=== PATIENT | male | born 1940 | race Caucasian/White ===

== ENCOUNTER 2016-10-29 18:18 | Emergency (ER) | payer MEDICARE, MEDICAID ==
[2016-10-29] MEDS ORDERED: ONDANSETRON INJ 4 MG/2 ML VIAL IV ONE (18:54)
[2016-10-29] MEDS ORDERED: SODIUM CHLORIDE 0.9% (FLUSH) 10 ML SYG IV PRN (18:54)
[2016-10-29] MEDS ORDERED: NITROGLYCERIN 0.4 MG 25 EA TAB SL ONE (18:54)
[2016-10-29] MEDS ORDERED: ASPIRIN TABLET 325 MG TAB PO ONE (18:54)
--- NOTE | 2016-10-29 19:27 | RAD ---
EXAM DESCRIPTION: X-RAY CHEST- One View CLINICAL HISTORY: Chest pain. COMPARISON: 10/28/2013 TECHNIQUE: Single view of the chest. FINDINGS: There are no discrete air space infiltrates, pneumothoraces or pleural effusions. There is presence of a new 8 mm well-circumscribed nodular density in the right lower lung zone, which can be further assessed with a CT of the chest The pulmonary vascularity is normal. The cardiomediastinal silhouette is unremarkable. IMPRESSION: There is presence of a new 8 mm well-circumscribed nodular density in the right lower lung zone, which can be further assessed with a CT of the chest Electronically signed by: Conor Vieyra MD 10/29/2016 19:25
--- NOTE | 2016-10-29 19:41 | CT ---
EXAM DESCRIPTION: CT HEAD WITHOUT INTRAVENOUS CONTRAST CLINICAL HISTORY: Suspected seizure activity. COMPARISON: None. TECHNIQUE: CT of the head was performed without intravenous contrast. FINDINGS: There is no intra or extra-axial hemorrhage,fluid collection, midline shift, mass effect or acute focal infarct. There is prominence of the sylvian fissures and the cortical sulci reflecting age related volume loss. There is periventricular and deep white matter low attenuation, most likely related to small vessel white matter ischemic disease. Acute on chronic ischemic changes are better assessed on an MRI, if such a suspicion exists clinically. The ventricular system is normal for patient's age, position and configuration. Benign intracranial vascular calcifications are seen. Visualized mastoid air cells are unremarkable. The paranasal sinuses are unremarkable. There is no visualization of calvarial or skull base fractures. IMPRESSION: There are no acute intracranial findings. Chronic and age related involutional changes are seen. Electronically signed by: Conor Vieyra MD 10/29/2016 19:39
[2016-10-29] MEDS ORDERED: amLODIPine BESYLATE 5 MG TAB PO ONE (20:37)
[2016-10-29] MEDS ORDERED: ALPRAZolam 0.25 MG TAB PO ONE (20:38)
--- NOTE | 2016-10-29 22:11 | ED.PDOC ---
History of Present Illness - General Chief Complaint: Neuro Symptoms/Deficits Stated Complaint: unresponsive Time Seen by Provider: 10/29/16 18:54 Source: patient, family Exam Limitations: no limitations - History of Present Illness Initial Comments: the patient is a 76-year-old male presenting to the emergency room by EMS. The patient essentially had a witnessed collapse at home. The patient was unconscious with a few jerking type movements. He was unconscious for probably 5 minutes before he started coming back around. He apparently did have breathing during that time but it was rather slow. by the time EMS arrived his blood pressure and pulse were essentially normal but he was still very confused and sluggish. He had urinated on himself. No biting of the tongue. He has no history of epilepsy. He does take benzodiazepines and opiates for anxiety and chronic pain. He does have COPD but has not recently been in a flare. He has had a mild headache today but apparently that is not very unusual for the patient. He has not been taking his blood pressure medications since arguing with his last week. He does have a history of some coronary artery disease as well as a stent across his abdominal aorta. This is placed due to an aneurysm in the past. It took approximately 45 minutes for the patient's mentation to get back normal once he arrived here. No focal neurological deficits at this time. Systolic blood pressures were around 190 upon arrival. They have since improved with a dose of his amlodipine down to approximately 150. The patient does have very frequent PVCs on telemetry. I have not seen any runs longer than 3-4 beats. He has had no recurrent altered mental status. Timing/Duration: momentarily Severity: severe Improving Factors: nothing Worsening Factors: nothing Associated Symptoms: headaches Allergies/Adverse Reactions: Allergies NO KNOWN ALLERGY Allergy (Verified 06/02/15 19:24) Home Medications: Ambulatory Orders Losartan Potassium 100 mg PO DAILY 10/29/13 HYDROcodone 5MG/APAP 325MG [[place] 5/325] 1 tab PO Q4-6H PRN #0 11/08/14 Losartan Potassium [Cozaar] 100 mg PO DAILY #30 tab 11/12/14 Metoprolol Succinate [Toprol Xl] 50 mg PO DAILY #30 tab.er.24 11/12/14 Mirtazapine [Remeron] 15 mg PO BEDTIME #30 tab 11/12/14 Omeprazole [Prilosec Cap] 20 mg PO ACBK #30 cap 11/12/14 Diclofenac Sodium (Topical) [Voltaren] 2 gm SC BID #1 06/02/15 Tramadol HCl 50 mg PO TID #20 tab 06/02/15 Review of Systems - Review of Systems Constitutional: States: malaise EENTM: States: no symptoms reported Respiratory: States: no symptoms reported Cardiology: States: no symptoms reported Gastrointestinal/Abdominal: States: no symptoms reported Genitourinary: States: no symptoms reported Musculoskeletal: States: no symptoms reported Skin: States: no symptoms reported Neurological: States: headache Endocrine: States: no symptoms reported All other Systems: No Change from Baseline Past Medical History (General) - Patient Medical History Hx Seizures: No Hx Stroke: No Hx Dementia: No Hx Asthma: No Hx of COPD: Yes Hx Cardiac Disorders: Yes Hx Congestive Heart Failure: No Hx Pacemaker: No Hx Hypertension: Yes Hx Thyroid Disease: No Hx Diabetes: No Hx Gastroesophageal Reflux: Yes Hx Renal Disease: No Hx Cancer: No Hx of HIV: No Hx Hepatitis C: No Hx MRSA: No Surgical History: appendectomy, cholecystectomy - Vaccination History Hx Tetanus, Diphtheria Vaccination: No Hx Influenza Vaccination: No Hx Pneumococcal Vaccination: No - Social History Hx Tobacco Use: Yes Hx Alcohol Use: No Hx Substance Use: No Hx Substance Use Treatment: No Hx Depression: No Hx Physical Abuse: No Hx Emotional Abuse: No - Female History Patient : No Family Medical History - Family History Mother Family History: No Known Living Status: Hx Family Congestive Heart Failure: Yes Father Family History: Unknown Living Status: Cause of : MVA Physical Exam - Physical Exam General Appearance: Frail, Lethargic - initially upon arrival but that has corrected with time, Ill Appearing, Unkempt Eye Exam: bilateral normal Ears, Nose, Throat: hearing grossly normal, normal ENT inspection - poor dentition Neck: non-tender, full range of motion, supple Respiratory: chest non-tender, lungs clear, normal breath sounds, no respiratory distress, no accessory muscle use Cardiovascular/Chest: normal peripheral pulses, regular rate, rhythm - requent PVCs are seen on telemetry, no edema Peripheral Pulses: radial,right: 2+, radial,left: 2+, dorsalis pedis,right: 2+, dorsalis pedis,left: 2+ Gastrointestinal/Abdominal: non tender, soft Rectal Exam: deferred Extremity: normal range of motion, non-tender, normal inspection, no pedal edema , no calf tenderness, normal capillary refill Neurologic: normal mood/affect - once the patient has, round, oriented x 3 - now , initially the patient was severely confused and disoriented Skin Exam: normal color Comments: Vital Signs - 24 hr 10/29/16 10/29/16 18:41 20:06 Temperature 97.9 F Pulse Rate [ 77 70 Right Brachial] Respiratory 16 17 Rate Blood Pressure 163/83 193/86 [Left Arm] O2 Sat by Pulse 100 98 Oximetry Progress - Progress Progress: 10/29/16 22:14 the patient is a 76-year-old male brought in after collapse at home. Clinically the patient is most consistent with a postictal state. However due to the frequent PVCs on telemetry and cannot say with certainty that he did not have a significant arrhythmia that brought him down. The patient is being transferred for evaluation by neurology for the possibility of new onset seizure disorder and for follow-up with cardiology given his cardiac history and the current PVCs. Initial cardiac enzymes are negative. Transfer for higher level of care. The patient is mentating well at this time. He has received a dose of his metoprolol and his amlodipine. He also received a small dose of Xanax in case benzodiazepine withdrawal has caused a seizure. - Results/Orders Results/Orders: EKG shows normal sinus rhythm with frequent PVCs. There is mild right axis deviation. No acute definitive ST segment changes consistent with ischemia. Chest x-ray shows a 8 mm nodule new to the right lower lobe. Recommends follow- up CT scan. Noncontrast head CT scan shows no evidence of hemorrhage, mass effect or hydrocephalus. - EKG/XRAY/CT CT Ordered: Yes CT Interpretation Call Back: Yes Departure - Departure Clinical Impression: Collapse, Frequent PVCs, Hypertensive urgency Disposition: Transfer to Hospital Home Medications: Ambulatory Orders Losartan Potassium 100 mg PO DAILY 10/29/13 HYDROcodone 5MG/APAP 325MG [[place] 5/325] 1 tab PO Q4-6H PRN #0 11/08/14 Losartan Potassium [Cozaar] 100 mg PO DAILY #30 tab 11/12/14 Metoprolol Succinate [Toprol Xl] 50 mg PO DAILY #30 tab.er.24 11/12/14 Mirtazapine [Remeron] 15 mg PO BEDTIME #30 tab 11/12/14 Omeprazole [Prilosec Cap] 20 mg PO ACBK #30 cap 11/12/14 Diclofenac Sodium (Topical) [Voltaren] 2 gm SC BID #1 06/02/15 Tramadol HCl 50 mg PO TID #20 tab 06/02/15 Transfer to Outside Facility - Transfer Information Accepting Provider:: dr bunn Accepting Facility: [facility] Reason for Transfer: required specialist not available
[2016-10-29] MEDS ORDERED: METOPROLOL TARTRATE 25 MG TAB PO ONE (22:13)
[2016-10-29 23:10] VITALS: BP 179/85; TEMP 100.1; O2SAT 99
== END 2016-10-29 22:40 | disposition short-term general hospital (02) ==
LOC: ER 18:18
DX: I16.0 Hypertensive urgency (principal); I49.3 Ventricular premature depolarization; R55 Syncope and collapse; J44.9 Chronic obstructive pulmonary disease, unspecified; F41.9 Anxiety disorder, unspecified; G89.29 Other chronic pain; I25.10 Atherosclerotic heart disease of native coronary artery without angina pectoris; K21.9 Gastro-esophageal reflux disease without esophagitis; Z79.899 Other long term (current) drug therapy; R91.1 Solitary pulmonary nodule
CPT/HCPCS: 36600; 70450; 71010; 80048; 82550; 82553; 82803; 82805; 83880; 84484; 85025; 85610; 85730; 93005; 94760; J2405

== ENCOUNTER 2016-11-03 15:21 | Emergency (ER) | payer MEDICARE, MEDICAID ==
--- NOTE | 2016-11-03 16:32 | CT ---
EXAM DESCRIPTION: CT HEAD WITHOUT INTRAVENOUS CONTRAST CLINICAL HISTORY: Status epilepticus COMPARISON: 2016 TECHNIQUE: CT of the head was performed without intravenous contrast . FINDINGS: There is no intracranial hemorrhage, midline shift, mass effect or acute focal infarct. Note is made of age related atrophy and mild chronic small vessel ischemic change in a periventricular distribution of the bilateral cerebral hemispheres. An MRI examination is more sensitive than the current study in evaluation of early acute infarcts, if present or clinically suspected. There is good spears/white matter differentiation. The ventricular system is normal. Visualized mastoid air cells are unremarkable. The paranasal sinuses are unremarkable. There is no visualization of calvarial or skull base fractures. IMPRESSION: There are no acute intracranial findings. Electronically signed by: Conor Vieyra MD 11/03/2016 16:30
[2016-11-03] MEDS ORDERED: SUCCINYLCHOLINE CHLORIDE 200 MG/10 ML VIAL ONE (17:21)
--- NOTE | 2016-11-03 17:21 | RAD ---
EXAM DESCRIPTION: X-RAY CHEST- One View CLINICAL HISTORY: Status epilepticus. COMPARISON: 10/29/2016 TECHNIQUE: Single view of the chest. FINDINGS: There are no discrete air space infiltrates, pneumothoraces or pleural effusions. The pulmonary vascularity is normal. The previously noted 8 mm room nodular density in the right lower lung zone is difficult to see on the current study. The cardiomediastinal silhouette is stable. IMPRESSION: There are no acute lung parenchymal findings. Electronically signed by: Conor Vieyra MD 11/03/2016 17:19
[2016-11-03] MEDS ORDERED: SODIUM CHLORIDE 0.9% 1000ML 1,000 ML ONE (17:33)
[2016-11-03] MEDS ORDERED: ETOMIDATE INJECTION 2 MG/ML 20ML VIAL IV ONE (17:34)
[2016-11-03] MEDS: SODIUM CHLORIDE 0.9% 1000ML 1,000 ML IVS PRN ×2 (17:40→19:05)
[2016-11-03] MEDS ORDERED: MIDAZOLAM INJ 5 MG/5 ML VIAL IV ONE (17:45)
--- NOTE | 2016-11-03 17:46 | ED.PDOC ---
History of Present Illness - General Chief Complaint: Neuro Symptoms/Deficits Time Seen by Provider: 11/03/16 15:40 - History of Present Illness Allergies/Adverse Reactions: Allergies NO KNOWN ALLERGY Allergy (Verified 06/02/15 19:24) Home Medications: Ambulatory Orders Losartan Potassium 100 mg PO DAILY 10/29/13 HYDROcodone 5MG/APAP 325MG [[place] 5/325] 1 tab PO Q4-6H PRN #0 11/08/14 Losartan Potassium [Cozaar] 100 mg PO DAILY #30 tab 11/12/14 Metoprolol Succinate [Toprol Xl] 50 mg PO DAILY #30 tab.er.24 11/12/14 Mirtazapine [Remeron] 15 mg PO BEDTIME #30 tab 11/12/14 Omeprazole [Prilosec Cap] 20 mg PO ACBK #30 cap 11/12/14 Diclofenac Sodium (Topical) [Voltaren] 2 gm SC BID #1 06/02/15 Tramadol HCl 50 mg PO TID #20 tab 06/02/15 Past Medical History (General) - Patient Medical History Hx Seizures: No Hx Stroke: No Hx Dementia: No Hx Asthma: No Hx of COPD: Yes Hx Cardiac Disorders: Yes Hx Congestive Heart Failure: No Hx Pacemaker: No Hx Hypertension: Yes Hx Thyroid Disease: No Hx Diabetes: No Hx Gastroesophageal Reflux: Yes Hx Renal Disease: No Hx Cancer: No Hx of HIV: No Hx Hepatitis C: No Hx MRSA: No - Vaccination History Hx Tetanus, Diphtheria Vaccination: No Hx Influenza Vaccination: No Hx Pneumococcal Vaccination: No - Social History Hx Tobacco Use: Yes Hx Alcohol Use: No Hx Substance Use: No Hx Substance Use Treatment: No Hx Depression: No Hx Physical Abuse: No Hx Emotional Abuse: No - Female History Patient : No Family Medical History - Family History Mother Family History: No Known Living Status: Hx Family Congestive Heart Failure: Yes Father Family History: Unknown Living Status: Cause of : MVA Progress - Progress Progress: 11/03/16 17:00 PT WITH MULTIPLE SZ'S, HAS NEVER CLEARED HIS POST ICTAL STATE. GCS <8 WILL INTUBATE FOR AIRWAY PROTECTION AND TRANSFER. FAMILY DOES NOT WANT TO GO BACK TO [place], REQUESTS TRANSPORT TO [facility]. 11/03/16 17:48 D/W DR [facility]. WILL ACCEPT PT IN TRANSPORT. INTUBATED AND STABLE. WILL START ON VECURONIUM AND VERSED. Procedures - Intubation Time of Intubation: 17:35 Intubation Method: orotracheal Tube Size (cm): FIBEROPTIC Medications: Succinylcholine Breath Sounds after Intubation: equal Intubation Complications: no complications Post Intubation Xray: Yes - GOOD TUBE PLACEMENT, Departure - Departure Clinical Impression: Status epilepticus Chronic obstructive pulmonary disease Qualifiers: COPD type: chronic bronchitis Chronic bronchitis type: simple Qualifier Code: ( J41.0) Simple chronic bronchitis Hypertension Qualifiers: Hypertension type: essential hypertension Qualifier Code: (I10) Essential ( primary) hypertension Time of Disposition: 17:56 Disposition: Transfer to Hospital Condition: Fair Departure Forms: ED Discharge - Pt. Copy, Patient Portal Self Enrollment Home Medications: Ambulatory Orders Losartan Potassium 100 mg PO DAILY 10/29/13 HYDROcodone 5MG/APAP 325MG [[place] 5/325] 1 tab PO Q4-6H PRN #0 11/08/14 Losartan Potassium [Cozaar] 100 mg PO DAILY #30 tab 11/12/14 Metoprolol Succinate [Toprol Xl] 50 mg PO DAILY #30 tab.er.24 11/12/14 Mirtazapine [Remeron] 15 mg PO BEDTIME #30 tab 11/12/14 Omeprazole [Prilosec Cap] 20 mg PO ACBK #30 cap 11/12/14 Diclofenac Sodium (Topical) [Voltaren] 2 gm SC BID #1 06/02/15 Tramadol HCl 50 mg PO TID #20 tab 06/02/15 Critical Care Note - Critical Care Note Comments: CRITICAL EVENT: STATUS EPILEPTICUS CRITICAL FINDINGS: MULTIPLE SZ, PERSISTENT POST ICTAL STATE, GCS <8 CRITCAL INTERVENTION: INTUBATION FOR AIRWAY PROTECTION, TRANSFER TO HIGHER LEVEL OF CARE, CLOSE MONITORING PRIOR TO TRANSPORT SYSTEM AT RISK: CARDIOVASCULAR, RESP TIME 30-74 MINUTES Transfer to Outside Facility - Transfer Information Accepting Provider:: [facility] Accepting Facility: [facility] Reason for Transfer: ICU
[2016-11-03] MEDS ORDERED: VECURONIUM BROMIDE 10 MG VIAL IV ONE ×3 (17:48→19:19)
--- NOTE | 2016-11-03 17:52 | RAD ---
EXAM DESCRIPTION: XR CHEST 1 VIEW CLINICAL HISTORY: 76 y/o MPost Intubation COMPARISON: 11/03/2016 at 5:09 p.m.. FINDINGS: Endotracheal tube tip approximately 4.5 cm above the henrik. The cardiomediastinal silhouette appears unremarkable. Atherosclerotic calcifications in the thoracic aorta. No consolidating infiltrates or pleural effusions. No pneumothorax. Cholecystectomy clips in the right upper abdomen. Overlying EKG leads. IMPRESSION: Endotracheal tube tip approximately 4.5 cm above the henrik. Electronically signed by: Kt Lama MD 11/03/2016 17:49
[2016-11-03] MEDS ORDERED: MIDAZOLAM INJ 5 MG/5 ML VIAL ONE (18:38)
[2016-11-03] MEDS ORDERED: SODIUM CHLORIDE 0.9% 50ML 50 ML ONE (18:40)
[2016-11-03] MEDS ORDERED: MIDAZOLAM INJ 25 MG in SODIUM CHLORIDE 0.9% 50ML 25 ML IV SCH (19:00)
[2016-11-03 19:40] VITALS: TEMP 97.8
[2016-11-03 19:53] VITALS: BP 191/98; O2SAT 96
== END 2016-11-03 19:50 | disposition short-term general hospital (02) ==
LOC: ER 15:21
DX: G40.901 Epilepsy, unspecified, not intractable, with status epilepticus (principal); J44.9 Chronic obstructive pulmonary disease, unspecified; I10 Essential (primary) hypertension; K21.9 Gastro-esophageal reflux disease without esophagitis; Z87.891 Personal history of nicotine dependence; Z79.899 Other long term (current) drug therapy
CPT/HCPCS: 31500; 36415; 36600; 70450; 71010; 80053; 82803; 85025; 94002; 94770; A4216; J0330; J2060; J2250; J7030

== ENCOUNTER → 2016-12-02 | Outpatient (CLI) | payer MEDICARE, MEDICAID | END | disposition home or self-care (01) | LOC: NC 14:00 | PROVIDERS: ATTEND Family Medicine | DX: G40.909 Epilepsy, unspecified, not intractable, without status epilepticus (principal) ==

== ENCOUNTER → 2016-12-24 | Outpatient (CLI) | payer MEDICARE, MEDICAID | END | disposition home or self-care (01) | LOC: NC 10:27 | PROVIDERS: ATTEND Family Medicine | DX: I69.398 Other sequelae of cerebral infarction (principal); R56.9 Unspecified convulsions; I10 Essential (primary) hypertension; Z00.00 Encounter for general adult medical examination without abnormal findings; Z12.5 Encounter for screening for malignant neoplasm of prostate; J44.9 Chronic obstructive pulmonary disease, unspecified | CPT/HCPCS: 80053; 80061; 80185; 84443; 85025; G0103 ==

== ENCOUNTER → 2016-12-29 | Outpatient (CLI) | payer MEDICARE, MEDICAID | END | disposition home or self-care (01) | LOC: NC 16:28 | PROVIDERS: ATTEND Family Medicine | DX: R30.0 Dysuria (principal) ==

== ENCOUNTER → 2017-03-04 | Outpatient (CLI) | payer MEDICARE, MEDICAID ==
--- NOTE | 2017-03-05 03:55 | US ---
Procedure: US ABDOMEN Exam Date: 03/04/2017 Ordering Provider: SANDRO VANG Clinical Indication: DIARRHEA, ABDOMEN PAIN Comparison: 11/04/2014 CT abdomen pelvis Technique: Real-time ultrasonography was obtained over the abdominal viscera and fundraising sale representative images were recorded. Findings: The liver is normal in size and contour. There is normal echogenicity throughout the liver. There are no intrahepatic masses. There is no intrahepatic ductal dilatation. The gallbladder is surgically absent. The extrahepatic common duct is normal in size measuring 4.6 mm. The spleen is normal in size and contour. There is normal internal echogenicity of the spleen. There are no splenic masses. The visualized portions of the pancreas are normal. There is a stent graft in the aorta for prior abdominal aortic aneurysm. Infrarenal abdominal aorta including the excluded portion of the aneurysm measures roughly 5.0 cm. The right kidney is normal in size and contour. The right kidney measures 10.1 cm in bipolar length. Cortical thickness and echogenicity are normal. There are no masses, calculi, or hydronephrosis. The left kidney is normal in size and contour. The left kidney measures 9.6 cm in bipolar length. Cortical thickness and echogenicity are normal. There are no masses, calculi, or hydronephrosis. There is no ascites. Impression: 1. Prior cholecystectomy. 2. There is a stent graft in the aorta for prior abdominal aortic aneurysm. Infrarenal abdominal aorta including the excluded portion of the aneurysm measures roughly 5.0 cm. 3. No other significant findings. Electronically signed by: Irving Valentine MD 03/05/2017 3:54 AM CDT
== END | disposition home or self-care (01) ==
LOC: US 11:22
PROVIDERS: ATTEND Family Medicine
DX: R10.84 Generalized abdominal pain (principal)

== ENCOUNTER → 2017-03-17 | Outpatient (CLI) | payer MEDICARE, MEDICAID ==
--- NOTE | 2017-03-17 13:40 | RAD ---
EXAM DESCRIPTION: KUB CLINICAL HISTORY: 77 years Male, ABD PAIN COMPARISON: None. 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 The bowel gas pattern is nonobstructive. The gallbladder is surgically absent. A small round calcification projects over the left ilium, probably represent benign soft tissue calcification. There are degenerative changes in the lumbar spine at several levels including slight scoliosis. IMPRESSION: Moderate amount of colonic stool and gas and postoperative changes in the abdominal aorta, but no acute intra-abdominal abnormality. Electronically signed by: Maurice Narvaez MD 03/17/2017 1:40 PM CDT Workstation: [facility]
== END | disposition home or self-care (01) ==
LOC: RAD 13:18
PROVIDERS: ATTEND Family Medicine
DX: R10.9 Unspecified abdominal pain (principal)

== ENCOUNTER → 2017-04-20 | Outpatient (CLI) | payer MEDICARE, MEDICAID | END | disposition home or self-care (01) | LOC: NC 09:28 | PROVIDERS: ATTEND Family Medicine | DX: I11.0 Hypertensive heart disease with heart failure (principal); I50.9 Heart failure, unspecified; J44.9 Chronic obstructive pulmonary disease, unspecified ==

== ENCOUNTER → 2017-04-29 | Outpatient (CLI) | payer MEDICARE, MEDICAID | END | disposition home or self-care (01) | LOC: NC 12:21 | PROVIDERS: ATTEND Family Medicine | DX: I50.9 Heart failure, unspecified (principal); I10 Essential (primary) hypertension ==

== ENCOUNTER → 2017-09-03 | Outpatient (CLI) | payer MEDICARE, MEDICAID | END | disposition home or self-care (01) | LOC: NC 08:44 | PROVIDERS: ATTEND Family Medicine | DX: I11.0 Hypertensive heart disease with heart failure (principal); I50.9 Heart failure, unspecified; J44.9 Chronic obstructive pulmonary disease, unspecified; R56.9 Unspecified convulsions; I69.398 Other sequelae of cerebral infarction ==

== ENCOUNTER → 2017-12-02 | Outpatient (CLI) | payer MEDICARE, MEDICAID | LOC: NC 18:54 | PROVIDERS: ATTEND Family Medicine | DX: I11.0 Hypertensive heart disease with heart failure (principal); I50.9 Heart failure, unspecified; J44.9 Chronic obstructive pulmonary disease, unspecified ==

== ENCOUNTER → 2018-07-14 | Outpatient (CLI) | payer MEDICARE, MEDICAID | LOC: NC 09:16 | PROVIDERS: ATTEND Radiology Diagnostic Radiology | DX: I11.0 Hypertensive heart disease with heart failure (principal); I50.9 Heart failure, unspecified; J44.9 Chronic obstructive pulmonary disease, unspecified ==

== ENCOUNTER → 2018-11-24 | Outpatient (CLI) | payer OTHER, MEDICAID | LOC: NC 15:59 | PROVIDERS: ATTEND Family Medicine | DX: I69.398 Other sequelae of cerebral infarction (principal); I11.0 Hypertensive heart disease with heart failure; I50.9 Heart failure, unspecified; J44.9 Chronic obstructive pulmonary disease, unspecified; R56.9 Unspecified convulsions ==

== ENCOUNTER → 2019-06-30 | Outpatient (CLI) | payer OTHER, MEDICAID | LOC: LAB.O 09:52 | PROVIDERS: ATTEND Family Medicine | DX: R56.9 Unspecified convulsions (principal); I10 Essential (primary) hypertension ==